=== PATIENT | male | born 1950 | race American Indian/Alaskan Native ===

== ENCOUNTER 2020-12-11 10:26 | Emergency (ER) | payer MEDICARE ==
--- NOTE | 2020-12-11 11:08 | Emergency Department Report ---
HPI - General Chief Complaint: Weakness Time Seen by Provider: 12/11/20 10:45 - HPI HPI: Room 23 The patient is a 70-year-old male present with a chief complaint of "not feeling good." The patient was recently diagnosed with dementia and told his sister yesterday that he was not feeling well and wanted to come to the hospital. When asked further about this the patient initially does not remember but then states he wanted to get checked out to see why his memory is failing. Patient denies pain of any type, nausea/vomiting or shortness of breath. Patient denies any history of fever. Patient has had a cough intermittently for the past 2 weeks has been nonproductive. Patient has not received any Covid vaccinations. The patient was followed by neurologist Dr. Leal and had an MRI of his brain performed a few days ago that was reportedly negative ED Past Medical Hx - Past Medical History Previous Medical History?: Yes Hx Dementia: Yes Additional medical history: Gastric ulcer - Surgical History Past Surgical History?: Yes Additional Surgical History: Gastric surgery - Family History Family history: no significant - Social History Smoking Status: Former Smoker (None x5 years) Substance Use Type: None (Denies illicit drug use), Alcohol (Daily) ED Review of Systems ROS: Stated complaint: DEMENTIA / NOT EATING/ WEAK /DISORIENTED Other details as noted in HPI Constitutional: denies: fever Eyes: denies: eye pain ENT: denies: throat pain Respiratory: cough. denies: shortness of breath Cardiovascular: denies: chest pain Endocrine: no symptoms reported Gastrointestinal: denies: abdominal pain, nausea, vomiting Genitourinary: denies: dysuria Musculoskeletal: denies: back pain Neurological: denies: headache Physical Exam - Physical Exam Vital Signs: Vital Signs 12/11/20 10:33 Temperature 97.8 F Pulse Rate 81 Respiratory 20 Rate Blood Pressure 148/85 O2 Sat by Pulse 99 Oximetry Physical Exam: GENERAL: The patient is well-developed well-nourished male lying on stretcher not appearing to be in acute distress. [] HEENT: Normocephalic. Atraumatic. Extraocular motions are intact. Patient has moist mucous membranes. NECK: Supple. No meningitic signs are noted. Trachea midline CHEST/LUNGS: Clear to auscultation. There is no respiratory distress noted. HEART/CARDIOVASCULAR: Regular. There is no tachycardia. There is no gallop rub or murmur. ABDOMEN: Abdomen is soft, nontender. Patient has normal bowel sounds. There is no abdominal distention. SKIN: There is no rash. There is no edema. There is no diaphoresis. NEURO: The patient is awake, alert, and oriented. The patient is cooperative. The patient has no focal neurologic deficits. The patient has normal speech. Cranial nervThere is no evidence of acute injury. ED Course Vital Signs 12/11/20 10:33 Temperature 97.8 F Pulse Rate 81 Respiratory 20 Rate Blood Pressure 148/85 O2 Sat by Pulse 99 Oximetry - Consultations Consultation #1: 12/11/20 13:45 Case and labs discussed with patient's primary physician Dr. Krishna- states he will follow up on the pancytopenia requested patient come to the office tomorrow ED Medical Decision Making - Lab Data Result diagrams: 12/11/20 11:41 12/11/20 11:41 Laboratory Tests 12/11/20 12/11/20 12/11/20 11:41 11:41 11:41 WBC 2.5 L RBC 3.08 L Hgb 10.6 L Hct 31.3 L MCV 102 H MCH 35 H MCHC 34 RDW 15.2 Plt Count 130 L Lymph % (Auto) 37.0 H [place] % (Auto) 15.0 H Eos % (Auto) 2.1 Baso % (Auto) 0.6 Lymph # (Auto) 0.9 L [place] # (Auto) 0.4 Eos # (Auto) 0.1 Baso # (Auto) 0.0 Seg Neutrophils % 45.3 Seg Neutrophils # 1.1 L Sodium 144 Potassium 3.4 L Chloride 110.9 H Carbon Dioxide 23 Anion Gap 14 BUN 11 Creatinine 0.9 Estimated GFR > 60 BUN/Creatinine Ratio 12 Glucose 82 Calcium 7.9 L Total Bilirubin 0.30 AST 61 H ALT 59 H Alkaline Phosphatase 82 Total Protein 5.8 L Albumin 3.3 L Albumin/Globulin Ratio 1.3 Corrected calcium 8.63 - Radiology Data Radiology results: image reviewed (Chest x-ray) interpreted by me: Chest x-ray-no focal filtrate, no pneumothorax. No foreign body seen - Differential Diagnosis Dementia, bronchitis, Critical care attestation.: If time is entered above; I have spent that time in minutes in the direct care of this critically ill patient, excluding procedure time. ED Disposition Clinical Impression: Dementia, Pancytopenia Disposition: DC-01 TO HOME OR SELFCARE Is pt being admited?: No Does the pt Need Aspirin: No Condition: Stable Additional Instructions: Return to the emergency department should you develop worsening symptoms, inability to tolerate food or liquids, high fever or any other concerns Referrals: CORINA KRISHNA MD [Primary Care Provider] - 12/13/20 (Your primary physician Dr. Krishna requests you come to his office 12/13/2020 for evaluation) Time of Disposition: 13:48
--- NOTE | 2020-12-11 11:30 | XRay Report ---
CHEST 2 VIEWS INDICATION / CLINICAL INFORMATION: Occasional cough x2 weeks. FINDINGS: SUPPORT DEVICES: None. HEART / MEDIASTINUM: No significant abnormality. LUNGS / PLEURA: No significant pulmonary or pleural abnormality. No pneumothorax. ADDITIONAL FINDINGS: No significant additional findings. IMPRESSION: 1. No acute findings. Signer Name: Edgardo Melo MD Signed: 12/11/2020 11:25 AM Workstation Name: [id number]
[2020-12-11 12:30] LABS: Basophils % (Auto) 0.6 % (0.0-1.8); Eosinophils # (Auto) 0.1 K/mm3 (0.0-0.4); Eosinophils % (Auto) 2.1 % (0.0-4.3); Hematocrit 31.3 % (35.5-45.6); Hemoglobin 10.6 gm/dl (11.8-15.2); Lymphocytes # (Auto) 0.9 K/mm3 (1.2-5.4); Mean Corpuscular HGB Conc 34 % (32-34); Mean Corpuscular Volume 102 fl (84-94); Monocytes # (Auto) 0.4 K/mm3 (0.0-0.8); Platelet Count 130 K/mm3 (140-440); Red Blood Count 3.08 M/mm3 (3.65-5.03); Red Cell Distribution Width 15.2 % (13.2-15.2)
[2020-12-11 12:41] LABS: BUN/Creatinine Ratio 12; Blood Urea Nitrogen 11 mg/dL (9-20); Calcium 7.9 mg/dL (8.4-10.2); Hemolysis Index 5
[2020-12-11 13:28] LABS: Alanine Aminotransferase 59 units/L (7-56); Albumin 3.3 g/dL (3.9-5)
[2020-12-11 13:59] LABS: Bilirubin,Direct < 0.2 mg/dL (0-0.2)
[2020-12-11 14:07] VITALS: BP 148/92
== END 2020-12-11 14:11 | disposition home or self-care (01) ==
LOC: ED 10:26
DX: D61.818 Other pancytopenia (principal); F03.90 Unspecified dementia, unspecified severity, without behavioral disturbance, psychotic disturbance, mood disturbance, and anxiety; Z98.890 Other specified postprocedural states; Z87.891 Personal history of nicotine dependence
CPT/HCPCS: 36415; 71046; 80048; 80076; 85025